=== PATIENT | male | born 1950 | race Hispanic/Latino ===

== ENCOUNTER 2016-10-25 19:28 | Observation (INO) | payer MEDICARE, BC ==
[2016-10-25] MEDS ORDERED: FAMOTIDINE 10 MG/ML VIAL IV ONE ×2 (19:37→19:39)
[2016-10-25] MEDS ORDERED: diphenhydrAMINE HCL 50 MG/ML VIAL IV ONE (19:38)
[2016-10-25] MEDS ORDERED: METHYLPREDNISOLONE SOD SUCC/PF 40 MG/ML VIAL IV ONE (19:38)
[2016-10-25] MEDS ORDERED: NORMAL SALINE 1,000 ML IV ONE ×2 (19:38→20:04)
[2016-10-25] MEDS ORDERED: EPINEPHrine 1 MG/ML AMPUL SC ONE (19:50)
--- NOTE | 2016-10-25 20:20 | ERNOTE ---
Allergy Symptoms - ER Date of Service: 10/25/16 Time Seen by Provider: 10/25/16 19:35 Source: patient Exam Limitations: no limitations Immunizations: IMMUNIZATION HX Immunizations Up to Date Yes History of Influenza Vaccine No Hx Pneumococcal Vaccination Yes Allergies/Adverse Reactions: Allergies simvastatin [From Zocor] Adverse Reaction (Verified 10/25/16 19:44) Other tramadol Adverse Reaction (Verified 10/25/16 19:44) Other Home Medications: HOME MEDICATIONS Atorvastatin Calcium 20 mg PO DAILY 10/25/16 [Last Taken 10/25/16] Fenofibrate Nanocrystallized [Tricor] 48 mg PO DAILY 10/25/16 [Last Taken ] Fluticasone Propionate [Flonase Allergy Relief] 1 spray NS PRN PRN 10/25/16 [ Last Taken Unknown] Tadalafil [Cialis] 20 mg PO PRN PRN 10/25/16 [Last Taken Unknown] Cetirizine HCl 10 mg PO DAILY #5 tablet 10/26/16 [Last Taken Unknown] - History of Present Illness Narrative: 66-year-old male presents to the emergency room after he was stung by a bee. Patient has a diffuse red raised uricartic rash all over his body. Patient's upper lip was slightly swollen. Patient states that he has an allergy to bee stings. 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 Absent: shortness of breath, cough Cardiology: Present: no symptoms reported Gastrointestinal/Abdominal: Present: no symptoms reported Genitourinary: Present: no symptoms reported Musculoskeletal: Present: no symptoms reported Skin: Present: See HPI, rash Endocrine: Present: no symptoms reported Hematologic/Lymphatic: Present: no symptoms reported Psych: Present: no symptoms reported All Other Systems: All systems neg except as marked - Patient's Past Medical History Patient History - Medical: No pertinent hx Patient History - Cardiac/Respiratory: No pertinent hx Patient History - Cancer: No Hx of Cancer Patient History - Surgical Procedures: No surgical history Patient History - Other: None - Family History Mother Family History - Medical: , No pertinent hx Father Family History - Medical: , No pertinent hx - Social History Living Situations: home Abuse History: No History of abuse Psych History: No pertinent hx Smoking Status: Never smoker Alcohol Use: rarely Drug Use: none - Immunizations Immunizations Up to Date: Yes Hx Pneumococcal Vaccination: Yes History of Influenza Vaccine: No Physical Exam - Physical Exam Narrative: patient has a diffuse red uricartic raised rash that started after his bee sting. patients upper lip is slightly swollen. no rash to neck or face. lungs clean no wheezing or stridor observed. General Appearance: Present: wd/wn, alert, mild distress Head Exam: Present: normal inspection, no evidence of injury Eye Exam: Normal inspection: bilateral Ears, Nose, Throat: Present: normal pharynx, other. Absent: nasal congestion, pharyngeal erythema, pharyngeal swelling Neck: Present: normal inspection, nontender, supple, full range of motion Respiratory: Present: no respiratory distress, normal breath sounds, no accessory muscle use, chest nontender, lungs clear Cardiovascular/Chest: Present: regular rate, rhythm, no murmur, normal peripheral pulses Peripheral Pulses: N=norm/S=strong/W=weak/B=bound/A=absent: Radial (R): Normal, Radial (L): Normal, Dorsalis-pedis (R): Normal, Dorsalis-pedis (L): Normal Gastrointestinal/Abdominal: Present: normal bowel sounds, nontender, nondistended, soft, no organomegaly Back Exam: Present: normal inspection, normal range of motion, no CVA tenderness , no vertebral tenderness Extremity Exam: Present: normal except -, non-tender, normal range of motion, no edema, other - rash Neurological Exam: Present: alert, oriented, normal mood/affect, no motor/ sensory deficits, 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 Vital Signs: Vital Signs 10/25/16 10/25/16 10/25/16 19:31 19:37 19:48 Temperature 37.2 C Pulse Rate 74 69 63 Respiratory 20 16 16 Rate Blood Pressure 195/83 149/74 113/71 O2 Sat by Pulse 97 97 95 Oximetry - Progress/Reassessment Chief Complaint: Allergic Reaction Progress:: Improved Plan - Plan Plan: patient given SQ epi r/t his lip swelling. he will be observed inpatient. Departure Clinical Impression: Bee sting-induced anaphylaxis Qualifiers: Encounter type: subsequent encounter Injury intent: accidental or unintentional Qualified Code(s): T63.441D - Toxic effect of venom of bees, accidental (unintentional), subsequent encounter - Departure Disposition: [facility] Condition: Good
--- NOTE | 2016-10-25 21:47 | HP ---
Chief Complaint - Chief Complaint Date of Service: 10/25/16 - n Time of Service: 21:00 Chief Complaint: "Bee sting, Itching.". Source of HPI- Pt; reliable, ER provider report. History of Present Illness: Mr. Melgoza is a 66-yr-old Male pt of Dr. Morales Braxton with a PMH of: Eczema, HSV, HLD, Insominia & Sciatica. Pt states that he was out working in his yard this evening when he got stung by a bee. He immediately begun itching all allover. He took a shower hoping that he would get some relief but he did not. He reports that he felt as though his lips were starting to swell and therefore asked his son to bring him to the [facility] ER. He denies having any SOB or noting any hives. At the ED, he received treatment with Epinephrine, Solumedrol and Pepcid IV. He will be admitted under observation status in-order to be closely monitored after an anaphylaxis treatment. - Patient's Past Medical History Patient History - Medical: Other - Eczema, HLD, Tinnitis, Erectyle dysfunction, Patient History - Cardiac/Respiratory: Hyperlipidemia Patient History - Cancer: No Hx of Cancer Patient History - Surgical Procedures: Vasectomy, Hernia Repair Patient History - Other: None - Family History Mother Family History - Medical: , No pertinent hx Father Family History - Medical: , No pertinent hx - Social History Living Situations: spouse Abuse History: No History of abuse Psych History: No pertinent hx Smoking Status: Former smoker Have you smoked in the past 12 months: No Do you dip or chew tobacco: No Patient requests Smoking Cessation Consult: No Initiate information on Smoking Cessation: No Alcohol Use: rarely Drug Use: none - Immunizations Immunizations Up to Date: Yes Hx Pneumococcal Vaccination: Yes History of Influenza Vaccine: No Review Of Systems (GEN) - Review of Systems Generalized/Overall Review: Absent: Weakness, Chills, Fever EENTM: Absent: Eye Pain, Blurred Vision, Tearing Respiratory: Absent: Cough, Shortness of Breath, Orthopnea Cardiac: Absent: Chest Pain, Edema, Palpitations Abdominal: Absent: Nausea, Vomiting, Hematemesis, Abdominal Pain, Constipation Genitourinary: Absent: Burning, Itching, Urgency, Frequency, Dribbling, Incontinent, Retention Musculoskeletal: Absent: Joint Pain, Back Pain, Joint Swelling Neurological: Absent: Headache, Anxiety, Depressed, Emotional Problems, Numbness , Parasthesia Skin: Absent: Dryness, Lesions, Lumps, Bruising Endocrine: Absent: Intolerance to Cold, Flushing, Increased Thirst Immunizations: IMMUNIZATION HX Immunizations Up to Date Yes History of Influenza Vaccine No Hx Pneumococcal Vaccination Yes Allergies/Adverse Reactions: Allergies Allergy/AdvReac Type Severity Reaction Status Date / Time simvastatin [From Zocor] AdvReac Other Verified 10/25/16 19:44 tramadol AdvReac Other Verified 10/25/16 19:44 Home Medications: HOME MEDICATIONS Atorvastatin Calcium 20 mg PO DAILY 10/25/16 [Last Taken 10/25/16] Fenofibrate Nanocrystallized [Tricor] 48 mg PO DAILY 10/25/16 [Last Taken ] Fluticasone Propionate [Flonase Allergy Relief] 1 spray NS PRN PRN 10/25/16 [ Last Taken Unknown] Tadalafil [Cialis] 20 mg PO PRN PRN 10/25/16 [Last Taken Unknown] Exam - Exam Vital Signs: Vital Signs - Last Taken Temp 36.7 C 10/25/16 21:22 Pulse 64 10/25/16 21:22 Resp 16 10/25/16 21:22 BP 156/68 10/25/16 21:22 Pulse Ox 97 10/25/16 21:22 Constitutional: Present: Alert, Oriented x3, Cooperative, No distress ENT Exam: Present: normal ENT inspection, hearing grossly normal, hard of hearing, TM bulging Eye Exam: bilateral eye: normal inspection, PERRL Neck: Present: full range of motion, supple, normal inspection Back Exam: Present: no CVA tenderness Breasts: Present: Nontender Respiratory: Present: lungs clear, no respiratory distress, No wheezing Cardiovascular/Chest: Present: normal peripheral pulses, regular rate, rhythm, no chest tenderness, no edema, no murmur Abdomen: Present: Normal bowel sounds, soft, nontender /Rectal: Present: Exam deferred Extremity: Present: non-tender, normal inspection, no pedal edema Skin Exam: Present: warm/dry, no cyanosis, cool/dry Lymphatic: Present: no adenopathy Neurologic: Present: normal cerebellar test, no motor/sensory deficits, alert, normal mood/affect, oriented x 3 Appearance: Present: appropriate appearance, appropriate insight Eye contact: Present: cooperative, good eye contact, normal speech Thoughts: Present: normal thought pattern, no apparent hallucination Assessment/Plan - Assessment/Plan (1) Bee sting-induced anaphylaxis Assessment: Pt reported insect bite from a bee sting. He had symptoms accompanied by generalized intense itching and lip swelling. He denied the associated symptoms of difficulty breathing, wheezing and wheal or hives. He reported getting relief with the Anaphylaxis treatment at the ED. He will remain under monitoring during the night to ensure that the anaphylaxis reaction resolves post-treatment. If no acute events overnight, will discharge in am on cetirizine 10mg daily x 5 days. No need for oral steroids as he had no urticaria. Problem: Acute Qualifiers: Encounter type: subsequent encounter Injury intent: accidental or unintentional Qualified Code(s): T63.441D - Toxic effect of venom of bees, accidental (unintentional), subsequent encounter
[2016-10-26] MEDS ORDERED: TADALAFIL 20 MG TABLET PO PRN (02:03)
[2016-10-26] MEDS ORDERED: ROSUVASTATIN CALCIUM 10 MG TABLET PO SCH (02:30)
[2016-10-26] MEDS ORDERED: FLUTICASONE PROPIONATE 120 SPRAY INHALER NS PRN (02:30)
--- NOTE | 2016-10-26 06:07 | DS ---
(1) Bee sting-induced anaphylaxis Problem: Acute Qualifiers: Encounter type: subsequent encounter Injury intent: accidental or unintentional Qualified Code(s): T63.441D - Toxic effect of venom of bees, accidental (unintentional), subsequent encounter Description of Stay: Admission HPI Mr. Melgoza is a 66-yr-old Male pt of Dr. Morales Colon with a PMH of: Eczema, HSV, HLD, Insominia & Sciatica. Pt states that he was out working in his yard this evening when he got stung by a bee. He immediately begun itching all allover. He took a shower hoping that he would get some relief but he did not. He reports that he felt as though his lips were starting to swell and therefore asked his son to bring him to the [facility] ER. He denies having any SOB or noting any hives. At the ED, he received treatment with Epinephrine, Solumedrol and Pepcid IV. He will be admitted under observation status in-order to be closely monitored after an anaphylaxis treatment. Hospital Problem/s 1.) Anaphylaxis from bee sting. Pt reported insect bite from a bee sting. He had symptoms accompanied by generalized intense itching and lip swelling. He denied the associated symptoms of difficulty breathing, wheezing and wheal or hives. He reported getting relief with the Anaphylaxis treatment at the ED.During the overnight stay, Mr. Fenton had no acute events involving SOB or urticaria. His swelling on the lips had reduced and he felt so. He complained on mild itching that was on and off. He will be discharged home on Cetirizine 10 mg daily x 5 days and he will follow up with his PCP next week. He is in a stable condition to be discharged home Procedures Performed: none Discharge Disposition: Home self care Disposition: Home self-care Condition: Good Discharge Activity: Activity as tolerated Discharge Diet: General/regular food Referrals: Morales Colon MD [Primary Care Provider] - Problem Oriented Discharge Instructions to Patient/Family: Bee, Wasp, or Hornet Sting, Anaphylactic Reaction, [id number] Additional Patient Instructions (free text): Follow-up with Dr. Colon next week. Prescriptions (Any new or edited meds): Cetirizine HCl 10 mg PO DAILY #5 tablet Complete Home Medications List: Complete Home Medication List: Atorvastatin Calcium 20 mg PO DAILY 07/28/17 Fenofibrate Nanocrystallized [Tricor] 48 mg PO DAILY 10/25/16 Fluticasone Propionate [Flonase Allergy Relief] 1 spray NS PRN PRN 10/25/16 Tadalafil [Cialis] 20 mg PO PRN PRN 10/25/16 Cetirizine HCl 10 mg PO DAILY #5 tablet 10/26/16
[2016-10-26 06:43] VITALS: BP 127/52
[2016-10-26] MEDS ORDERED: FENOFIBRATE,MICRONIZED 67 MG CAPSULE PO SCH (09:00)
== END 2016-10-26 09:22 | disposition home or self-care (01) ==
LOC: ER 19:28 → MS 20:14
PROVIDERS: ADMIT Nurse Practitioner; ATTEND Internal Medicine
DX: T63.441A Toxic effect of venom of bees, accidental (unintentional), initial encounter (principal); L50.0 Allergic urticaria; T78.3XXA Angioneurotic edema, initial encounter
CPT/HCPCS: 71010; 96372; 96374; 96375; 99284; G0378

== ENCOUNTER 2016-12-10 17:30 | Emergency (ER) | payer MEDICARE, BC ==
[2016-12-10 17:38] VITALS: BP 127/90
[2016-12-10] MEDS ORDERED: FAMOTIDINE 20 MG TABLET PO ONE (17:43)
[2016-12-10] MEDS ORDERED: diphenhydrAMINE HCL 50 MG CAPSULE PO ONE ×2 (17:43→17:47)
[2016-12-10] MEDS ORDERED: METHYLPREDNISOLONE ACETATE 80 MG/ML VIAL IM ONE (17:43)
[2016-12-10] MEDS ORDERED: FAMOTIDINE 20 MG TABLET ONE (17:47)
[2016-12-10] MEDS ORDERED: METHYLPREDNISOLONE ACETATE 80 MG/ML VIAL ONE (17:47)
--- NOTE | 2016-12-10 17:50 | ERNOTE ---
Integumentary HPI - General Presenting Symptoms: other - bee sting Time Seen by Provider: 12/10/16 17:40 Source: patient Exam Limitations: no limitations - Immun/Allergies/Home Medications Immunizations: IMMUNIZATION HX Immunizations Up to Date Yes History of Influenza Vaccine No Hx Pneumococcal Vaccination Yes Allergies/Adverse Reactions: Allergies Allergy/AdvReac Type Severity Reaction Status Date / Time simvastatin [From Zocor] AdvReac Other Verified 12/10/16 17:38 tramadol AdvReac Other Verified 12/10/16 17:38 Home Medications: HOME MEDICATIONS Atorvastatin Calcium 20 mg PO DAILY 10/25/16 [Last Taken 10/25/16] Fenofibrate Nanocrystallized [Tricor] 48 mg PO DAILY 10/25/16 [Last Taken ] Fluticasone Propionate [Flonase Allergy Relief] 1 spray NS PRN PRN 10/25/16 [ Last Taken Unknown] Tadalafil [Cialis] 20 mg PO PRN PRN 10/25/16 [Last Taken Unknown] Cetirizine HCl 10 mg PO DAILY #5 tablet 10/26/16 [Last Taken Unknown] Famotidine [Pepcid] 20 mg PO BID #10 tablet 12/10/16 [Last Taken Unknown] predniSONE [Deltasone] 20 mg PO BID #10 tablet 12/10/16 [Last Taken Unknown] - History of Present Illness Narrative: Just prior to arrival patient got stung by a bee on the right side of his neck on the ear and he now has swelling and localized erythema around the site Location: Reports: neck, other - right ear Quality: Reports: itching Severity: moderate Exposure: Reports: bee/wasp sting Modifying Factors - (Improves): Reports: nothing Modifying Factors - (Worsens): Reports: nothing Associated Symptoms: Reports: rash, hives Review of Systems - Review of Systems Constitutional: Present: See HPI EYE: Present: no symptoms reported ENT: Present: no symptoms reported Respiratory: Present: no symptoms reported Cardiology: Present: no symptoms reported Gastrointestinal/Abdominal: Present: no symptoms reported Genitourinary: Present: no symptoms reported Musculoskeletal: Present: no symptoms reported Skin: Present: other - swelling of the right pinna of the ear and urticaria around the actual sting Neurological: Present: no symptoms reported Endocrine: Present: no symptoms reported Hematologic/Lymphatic: Present: no symptoms reported Psych: Present: no symptoms reported - Patient's Past Medical History Patient History - Medical: No pertinent hx Patient History - Cardiac/Respiratory: No pertinent hx Patient History - Cancer: No Hx of Cancer Patient History - Surgical Procedures: No surgical history Patient History - Other: None - Family History Mother Family History - Medical: , No pertinent hx Father Family History - Medical: , No pertinent hx Family History - Cardiac/Respiratory: No pertinent hx - Social History Living Situations: home Abuse History: No History of abuse Psych History: No pertinent hx Smoking Status: Never smoker Have you smoked in the past 12 months: No Alcohol Use: rarely Drug Use: none - Immunizations Immunizations Up to Date: Yes Hx Pneumococcal Vaccination: Yes History of Influenza Vaccine: No Physical Exam - Physical Exam General Appearance: Present: wd/wn, alert, mild distress Head Exam: Present: normal inspection Eye Exam: Normal inspection: bilateral, PERRL: bilateral Ears, Nose, Throat: Present: normal pharynx, other - patient has a swollen right earlobe and pinna however no glossal edema Neck: Present: normal inspection, nontender, other - no stridor present Respiratory: Present: no respiratory distress, normal breath sounds, no accessory muscle use, chest nontender, lungs clear, other - no wheezing present Cardiovascular/Chest: Present: regular rate, rhythm, no murmur, normal peripheral pulses Gastrointestinal/Abdominal: Present: normal bowel sounds, nontender, nondistended, soft, no organomegaly Rectal Exam: Present: deferred Back Exam: Present: normal inspection, normal range of motion Extremity Exam: Present: normal inspection, non-tender, no edema, normal range of motion Neurological Exam: Present: alert, oriented, normal mood/affect Skin Exam: Present: other - erythema and urticaria around the sting site Lymphatic Exam: Present: no adenopathy ED Progress - Vital Signs Patient's Vital Signs:: I have reviewed the patient's vital signs. Vital Signs: Vital Signs 12/10/16 17:35 Temperature 36.4 C L Pulse Rate 82 Respiratory 16 Rate Blood Pressure 127/90 O2 Sat by Pulse 95 Oximetry - Progress/Reassessment Chief Complaint: Insect Bite Progress:: Improved Plan - Plan Plan: Patient was given Depo-Medrol, Benadryl and Pepcid in the ED and we will give him prescription for prednisone and Pepcid and he will take [id number] Benadryl as needed. Patient does not appear to have an anaphylactic reaction and should be stable for discharge. Departure Clinical Impression: Bee sting reaction Qualifiers: Encounter type: initial encounter Injury intent: accidental or unintentional Qualified Code(s): T63.441A - Toxic effect of venom of bees, accidental ( unintentional), initial encounter - Departure Disposition: Home self-care Condition: Good Instructions: Bee, Wasp, or Hornet Sting Additional Instructions: Use Benadryl as needed for any further allergic reaction or itching Referrals: Morales Colon MD [Primary Care Provider] - Prescriptions: Famotidine [Pepcid] 20 mg PO BID #10 tablet predniSONE [Deltasone] 20 mg PO BID #10 tablet
== END 2016-12-10 18:29 | disposition home or self-care (01) ==
LOC: ER 17:30
DX: T63.441A Toxic effect of venom of bees, accidental (unintentional), initial encounter (principal)